=== PATIENT | male | born 2000 | race Caucasian/White ===

== ENCOUNTER 2024-08-08 07:30 | Emergency (ER) | payer OTHER, SELFPAY ==
[2024-08-08 07:32] VITALS: BP 123/91
--- NOTE | 2024-08-08 08:43 | ED.MUSCINJ ---
HPI-Injury
General
Chief Complaint: Musculo-Skeletal Complaint
Source: patient
Exam Limitations: none
Time Seen by Provider: 08/08/24 08:01
History of Present Illness-Injury
Initial Injury comments:
24-year-old male presents complaining of bilateral foot and ankle pain. He jumped off a 15 foot ledge last evening and landed square on his heels. He complains of right greater than left foot pain and swelling. Initially had some back discomfort
however that has since resolved. He denies knee pain or thigh pain. He did not hit his head. No other complaints at this time
Past History
Past History
ED Past Medical History: None
ED Past Surgical History: None
Social History
Tobacco: Former smoker
Alcohol: Occasional
Drug: Marijuana
Personal: Single
Living: with family
Employment: Employed
Phy Exam
Physical Exam
Physical Exam:
General: Well-appearing male no acute respiratory distress
HEENT: Normocephalic atraumatic
Musculoskeletal exam: The spine is nontender. The pelvis and hips and knees are nontender. His right ankle is swollen and tender over the anterior lateral and medial aspect of the ankle and heel. The left heel is tender over the lateral and
medial aspects.
Vascular: 2 dorsalis pedis pulse bilateral feet
Heart: Regular rate and rhythm
Lungs: Clear no wheeze
Neurologic: Alert and oriented patient to all extremities.
Injury Course
Orders/Labs/Results
Orders:
Orders
08/08/24 07:55
CR Ankle - Right Min 3 Views * Urgent
Comment:
Reason For Exam: pain injury
CR Foot - Right Min 3 Views Urgent
Comment:
Reason For Exam: pain injury
Heel, Left 2 View [CR Heel/os Calcis - Left 2 Vw*] Urgent
Comment:
Reason For Exam: pain injury
08/08/24 08:53
CT Lower Ext W/o Iv Cont Lt Urgent
Comment:
Reason For Exam: pain in heel, possible fracture
CT Lower Ext W/o Iv Cont Rt Urgent
Comment:
Reason For Exam: fall from height, tender about heel
08/08/24 11:11
Crutches-Treatment ONCE
Ortho Boot Right- Treatment ONCE
Short or tall?: Short
MDM/Problems Addressed
Differential Diagnosis Includes:
X-rays of the right foot and ankle were obtained as well as the left heel. There is concern on x-ray for possible nondisplaced fracture of the left calcaneus. Clinically however the right foot is more ecchymotic and swollen. Discussed further
imaging and ordered CT of both feet. Given the mechanism of injury there was concern for possible occult fracture. CT of both ankles were ordered and reviewed are actually negative for acute fracture. Patient reassured. He was placed in a
walking boot to the right foot given crutches and advised follow-up with orthopedic
*Critical Care Note
Total Time (30-74mins, 75-104mins- exclusive of procedures): Not Applicable
ED Attending Note
-
Portions of this chart may have been created with voice recognition software.� Occasional wrong word or��sound alike� substitutions may have occurred due to the inherent limitations of voice recognition software.
Discharge Plan
Departure
Patient Disposition: Home (Routine Discharge)
Date of Disposition: 08/08/24
Time of Disposition: 11:29
Patient with high blood pressure during this ER visit?: No
Discharge Problem:
Contusion
Instructions: Muscle and Bone Pain (DC)
Prescriptions:
No Action
No Current Medications
0
Referrals:
Ba Kumar MD [Family Provider] -
Activity Restrictions/Additional Instructions:
Use boot for support on the right foot. Use crutches if needed for additional support. Elevate for swelling. Use ibuprofen and Tylenol for pain. Follow-up with your orthopedic doctor for further evaluation
Interventions
Interventions:
*Risk Screen - Suicide Last Done: 08/08/24 07:32
*General Assessment Last Done: 08/08/24 07:32
*Neglect/Abuse Screening Last Done: 08/08/24 07:32
ED-Musculoskeletal Assessment Last Done: 08/08/24 08:01
Discharge Date and Time
Print Language: NIGERIEN
[2024-08-08 12:00] VITALS: BP 131/77
== END 2024-08-08 12:02 | disposition home or self-care (01) ==
LOC: EMR 07:30
PROVIDERS: EMERGENCY PHYSICIAN Emergency Medicine; FAMILY PHYSICIAN Family Medicine
DX: S90.31XA Contusion of right foot, initial encounter (principal); M25.572 Pain in left ankle and joints of left foot; M79.672 Pain in left foot; W17.89XA Other fall from one level to another, initial encounter; Z87.891 Personal history of nicotine dependence
CPT/HCPCS: 99284; 29515; 73610; 73630; 73650; 73700

== ENCOUNTER → 2024-11-13 10:40 | Outpatient (REF) | payer OTHER, SELFPAY | LOC: MRI 3T 10:40 | PROVIDERS: ATTENDING PHYSICIAN Student in an Organized Health Care Education/Training Program; FAMILY PHYSICIAN Physician Assistant | DX: M25.571 Pain in right ankle and joints of right foot (principal) | CPT/HCPCS: 73721 ==

== ENCOUNTER → 2025-09-21 16:53 | Outpatient (REF) | payer OTHER, SELFPAY | LOC: RAD 16:53 | PROVIDERS: ATTENDING PHYSICIAN Family Medicine | DX: M25.532 Pain in left wrist (principal) | CPT/HCPCS: 73110 ==